=== PATIENT | male | born 1980 | race Caucasian/White ===

== ENCOUNTER 2019-04-13 08:47 | Outpatient (CLI) | payer OTHER | END 2019-04-13 15:00 | disposition home or self-care (01) | LOC: LAB 08:47 | DX: R59.1 Generalized enlarged lymph nodes (principal); L20.89 Other atopic dermatitis; D50.8 Other iron deficiency anemias; D51.8 Other vitamin B12 deficiency anemias; I10 Essential (primary) hypertension; D51.1 Vitamin B12 deficiency anemia due to selective vitamin B12 malabsorption with proteinuria; D51.0 Vitamin B12 deficiency anemia due to intrinsic factor deficiency; A69.22 Other neurologic disorders in Lyme disease ==